=== PATIENT | female | born 1940 | race Caucasian/White ===

== ENCOUNTER 2024-05-29 09:51 | Day surgery (SDC) | payer MEDICARE, OTHER, SELFPAY ==
[2024-05-29] VITALS (10 sets, daily range): BP systolic 122–188; BP diastolic 47–75; BMI 24.4
[2024-05-29 10:41] LABS: ALT (SGPT) 18 U/L (0-35); AST (SGOT) 21 U/L (14-36); Albumin 4.7 g/dl (3.5-5.0); Alkaline Phosphatase 64 U/L (38-126); Blood Urea Nitrogen 19 mg/dl (7-17); Calcium 9.8 mg/dl (8.4-10.2); Carbon Dioxide 31 mmol/L (22-30); Chloride 99 mmol/L (98-107); Glucose 127 mg/dl (70-99); Potassium 4.8 mmol/L (3.5-5.1); Sodium 139 mmol/L (135-145); Total Bilirubin 1.6 mg/dl (0.2-1.3); Total Protein 7.6 g/dl (6.3-8.2); eGFR > 60.00
[2024-05-29 11:00] LABS: Glucose - Point of Care 114 mg/dl (70-99)
[2024-05-29 15:01] LABS: Glucose - Point of Care 81 mg/dl (70-99)
--- NOTE | 2024-05-29 15:25 | CONSULT.STRU ---
Consultation
-
Date/Time Consultation Requested: 05/29/2024
Date/Time Consultation Performed: 05/29/2024
Requesting Provider: Richard Paul MD
Performing Provider: MARILUZ Galeana
Reason for Consultation: /TAVR
Patient History
Physicians
Family Physician: Yaneth Shelley MD
Outpatient Dewaxer: Reema Bunn MD
Primary Dewaxer: Reema Bunn MD
History of Present Illness
Ms. Mane is a very pleasant, very spry 83 yof with a PMH significant for , CAD, CABG, PAF, PPM, HTN, IDDM, HLD. Her echocardiogram from 05/01/2024 is notable for EF 53%, AV PM 66/46, TOYA 0.63, DI 0.24, pk brii 4.05, no AI, moderate-severe MAC,
mild MR, PVSP 40.2. From a symptomatology standpoint, patient described ERIC that has progressively gotten worse over the last several months. She also has positional dizziness. Ms. Mane continue to be very active with her household including
bringing wood up to the house. Discussed the pathophysiology and treatment options of including SAVR and TAVR. Explained the evaluation process comprising of repeat labs, dental clearance, CT scan, CT surgical consult, and a heart team
discussion. TAVR booklet, contact information, prescriptions, and appointments given to patient. Allowed for and answered quesiotns at bedside.
Past Medical History
Past Medical History: Atrial Fib, CAD, HTN, Hypothyroidism, RI, Valvular Disease (aortic stenosis, MR) and Other (hyperlipidemia)
Past Surgical History
Past Surgical History: CABG (10/2013 @ [facility]) and PCI/Stent
Dental History
[facility]
Family History
Father: at Age (45) and Cause of (heart disease)
Social History
Alcohol: None
Drug: None
Tobacco: Non-Smoker
Living: With Family
Allergies
Allergy/AdvReac Type Severity Reaction Status Date / Time
acetaminophen [From Vicodin] Allergy pt doesnt Verified 05/29/24 10:58
recall
alirocumab Allergy Unknown Verified 05/29/24 10:58
[From Praluent Pen]
diazepam [From Valium] Allergy pt not Verified 05/29/24 10:55
aware
ezetimibe [From Zetia] Allergy Unknown Verified 05/29/24 10:58
hydrocodone [From Vicodin] Allergy pt doesnt Verified 05/29/24 10:58
recall
ibuprofen [From Advil] Allergy dizziness Verified 05/29/24 10:55
lisinopril [From Prinivil] Allergy Unknown Verified 05/29/24 10:58
oxycodone [From Percocet] Allergy pt doesnt Verified 05/29/24 10:58
know
sulfamethoxazole Allergy gi upset Verified 05/29/24 10:58
[From Bactrim]
trimethoprim [From Bactrim] Allergy gi upset Verified 05/29/24 10:58
Home Medications
�Medication �Instructions �Recorded �Confirmed �Type
apixaban 5 mg tablet (Eliquis) 5 mg PO BID afib 05/29/24 05/29/24 History
clorazepate dipotassium 3.75 mg 3.75 mg PO DAILY anxiety 05/29/24 05/29/24 History
tablet
colestipol 1 gram tablet 1 g PO BID cholesterol 05/29/24 05/29/24 History
dronedarone 400 mg tablet (Multaq) 400 mg PO BID afib 05/29/24 05/29/24 History
insulin aspart U-100 100 unit/mL 1 sliding scale dose SC 05/29/24 05/29/24 History
(3 mL) subcutaneous pen (Novolog DIRECTED dm
FlexPen U-100 Insulin aspart)
insulin glargine 100 unit/mL See Rx Instructions .Route 05/29/24 05/29/24 History
subcutaneous cartridge .COMPLEX dm
levothyroxine 112 mcg tablet 112 mcg PO DAILY Thyroid 05/29/24 05/29/24 History
(Synthroid)
losartan 50 mg tablet 75 mg PO DAILY bp 05/29/24 05/29/24 History
metformin 500 mg tablet 500 mg PO BID dm 05/29/24 05/29/24 History
multivitamin 1 cap PO DAILY Supplement 05/29/24 05/29/24 History
omeprazole 20 mg capsule,delayed 20 mg PO DAILY stomach 05/29/24 05/29/24 History
release
STS%
STS %: 6.79
Review of Systems
-
History Source: Patient
General: Reports Weight Loss (intentional)
Respiratory: Reports ERIC
Cardiac: Reports No Symptoms
Abdomen/GI: Reports No Symptoms
: Reports No Symptoms
Musculoskeletal: Reports No Symptoms
Skin: Reports No Symptoms
Neurological: Reports Dizzy
Vascular: Reports No Symptoms
Physical Exam
Vital Signs
Temp 97.3 F 05/29/24 10:05
Temp route: Oral 05/29/24 10:05
Pulse 70 05/29/24 12:30
Resp Rate 22 05/29/24 12:30
Blood pressure 179/59 05/29/24 10:53
Blood pressure extremity used: Right upper arm 05/29/24 10:05
MAP (cuff-Triny Monitor) 93 05/29/24 10:53
SaO2 97 05/29/24 12:30
Oxygen Mode of Delivery Room air 05/29/24 10:05
Can the patient verbally communicate their pain? Yes 05/29/24 10:05
Actual Weight 64.4 kg 05/29/24 10:54
Body Mass Index (BMI) 0.0 05/29/24 11:14
Labs
05/29/24 10:05
Diagnostic Studies
Echocardiogram 05/01/2024
SUMMARY
1. Preserved left ventricular systolic function.
2. Estimated left ventricular ejection fraction is normal with an ejection fraction of 53.2 % by Shook's method.
3. Left ventricular ejection fraction, by visual estimation, is 50 to 55%.
4. Mild concentric left ventricular hypertrophy.
5. Abnormal LV diastolic function.
6. Normal right ventricular size and systolic function.
7. Severely dilated left atrium by volume index 62.3 mL/m2.
8. Normal right atrium by area 15.0 cm2.
9. Aortic valve is thickened and calcified. Severe aortic valve stenosis. No evidence of aortic regurgitation.
10. AoV velocity of 4.05 m/s; Peak aortic valve gradient = 65.5 mmHg; Mean gradient = 46.0 mmHg; AoV Area by continuity equation = 0.63 cm2; AoV Dimensionless Index = 0.24.
11. There is mild thickening of the anterior and posterior leaflets of the mitral valve. Moderate to severe mitral annular calcification.
12. Mild mitral valve regurgitation is seen.
13. Moderate tricuspid regurgitation.
14. Right atrial pressure of (3 mmHg), the estimated right ventricular systolic pressure is mildly elevated at (40.2 mmHg).
15. Pacer wire noted in the right heart.
16. Compared to a prior TTE study from 08/04/2021.
17. Mid anteroseptal segment and apex are abnormal.
Procedure Type:�Isolated AVR
Perioperative Outcome Estimate %
Operative Mortality 6.79%
Morbidity & Mortality 25.3%
Stroke 2.64%
Renal Failure 5.51%
Reoperation 5.01%
Prolonged Ventilation 14.8%
Deep Sternal Wound Infection 0.226%
Long Hospital Stay (>14 days) 21.2%
Short Hospital Stay (<6 days)* 17%
Exam
General: Well Developed, Well Nourished, No Apparent Distress and Comfortable
HEENT: Normocephalic
Neck: Trachea Midline
Respiratory: Clear (Anteriorly)
Cardiac: Murmur (III/)
GI: Soft and Non Tender
Rectal: Deferred by Provider
Skin: Warm and Dry
Neuro: Awake, Alert, Oriented and AO x 3
Extremities: Pulses
Psych: Calm
Assessment / Plan
-
Aortic stenosis
Continue TAVR evaluation
Trend creatinine (Rx given)
TAVR CT Scan (06/16)
CT surgical consult (MPT 06/24)
Frailty testing and KccQ 12 at consult
Dental clearance
Will hold Eliquis for TAVR and initiate aspirin while Eliquis held
Heart team discussion.
Data Reviewed
-
Mate Relief: Discussed with Physician
Echo: Report Reviewed by me and Discussed with Physician
Labs: Labs Reviewed by me
Old Records: Reviewed (Drs. Bunn and Beverly office notes)
--- NOTE | 2024-05-29 15:41 | ITS.CL.PN ---
[employer] - Procedure Note
Procedure
Procedure Note:
CARDIAC CATHETERIZATION REPORT
Date of Procedure: 05/29/2024
Referring: Dr. Reema Bunn MD
Indication: severe aortic stenosis
PROCEDURE(S)
1. right heart catheterization
2. left heart catheterization
3. coronary angiography
ACCESS
1. 6F right femoral artery (closure: Angioseal)
2. 5F right antecubital vein (closure: manual hemostasis)
CATHETERS
1. 5F [place]-Ja[place]
2. 6F JR4
3. 6F JL4
4. 6F MPA (best catheter for SVG-OM1)
5. 6F RUDY
6. 6F 3DRC
MODERATE SEDATION: 64 minutes of moderate sedation was utilized. An independent medical screener was present to assist with and help manage the patient's level of consciousness and physiologic status.
ULTRASOUND GUIDED VASCULAR ACCESS (right brachial vein): Ultrasound was utilized for vascular access. The vessel was visualized under ultrasound and noted to be patent. An image of the vessel was stored permanently in the patient's medical record.
Under direct ultrasound guidance, vascular access was obtained using a modified Seldinger technique and a 5 Greek sheath was placed.
ULTRASOUND GUIDED VASCULAR ACCESS (right common femoral artery): Ultrasound was utilized for vascular access. The vessel was visualized under ultrasound and noted to be patent. An image of the vessel was stored permanently in the patient's medical
record. Under direct ultrasound guidance, vascular access was obtained using a modified Seldinger technique and a 6 Greek sheath was placed.
HEMODYNAMIC DATA
LV 232/14 (EDP 20) mmHg
AO 176/62 (mean 105) mmHg
RA 7 mmHg
RV 42/3 (EDP 8) mmHg
PA 40/14 (mean 27) mmHg
PCWP 17 mmHg
SaO2 94.5%
SvO2 70.3%
Hb 13.4 g/dL
CO/CI 4.62/2.83 L/min/m2
SVR 1697 dsc*-5
PVR 2.2 Wood units
CORONARY ANGIOGRAPHY
Dominance: right
LM: moderate caliber vessel with severe distal stenosis
LAD: gives rise to an early rising ramus/D1 and D2 before being totally occluded with the mid-distal vessel fed via the GUY which backfills a D3 and antegrade fills the vessel to the apex. There are serial severe stenoses in the distal vessel with
TIMI3 flow to the apex.
LCx: totally occluded ostially. The entire vessel is fed via the patent SVG-OM1. The OM1 proximal to the SVG touchdown has a patent stent with moderate diffuse ISR. The remainder of the vessel has mild diffuse disease.
RCA: gives rise to a RPDA and several RPL branches. There is diffuse mild-moderate disease throughout.
BYPASS GRAFT ANGIOGRAPHY:
GUY-LAD: the GUY is taken as a pedicle and forms an anastomosis with the mid-LAD
SVG-OM1: patent
SVG-RPDA: occluded proximally (as reported from 2020 catheterization)
RADIATION: dose 767 mGy; DAP 49 Gy*cm2; fluoroscopy time 25 min
CONCLUSIONS
1. coronary artery disease as described with patent GUY-LAD, patent SVG-OM1, and known occluded SVG-RPDA. There is diffuse non-critical disease in the bad river band RCA. The LAD distal to the GUY touchdown has serial severe lesions with TIMI3 flow to the
apex.
2. mildly elevated biventricular filling pressures, mild pulmonary hypertension, and normal cardiac output
3. peak to peak gradient on pullback of 56 mmHg consistent with know high gradient severe aortic stenosis
RECOMMENDATIONS
1. expectant management after cardiac catheterization via right common femoral artery and right brachial vein approach
2. medical management of CAD s/p CABG
2. proceed with TAVR workup
Copy to: Dr. Reema Bunn MD (diabetes nurse); Dr. Ena Shelley MD (PCP)
Signed: Richard Paul MD, PhD
== END 2024-05-29 18:31 | disposition home or self-care (01) ==
LOC: CATH 09:51
PROVIDERS: ATTENDING PHYSICIAN Student in an Organized Health Care Education/Training Program; FAMILY PHYSICIAN Internal Medicine; OTHER PHYSICIAN Internal Medicine Cardiovascular Disease
DX: I25.810 Atherosclerosis of coronary artery bypass graft(s) without angina pectoris (principal); I25.10 Atherosclerotic heart disease of native coronary artery without angina pectoris; I27.20 Pulmonary hypertension, unspecified; I08.3 Combined rheumatic disorders of mitral, aortic and tricuspid valves; I10 Essential (primary) hypertension; E11.9 Type 2 diabetes mellitus without complications; Z79.01 Long term (current) use of anticoagulants; Z79.4 Long term (current) use of insulin; Z79.890 Hormone replacement therapy; Z79.84 Long term (current) use of oral hypoglycemic drugs; I25.2 Old myocardial infarction
CPT/HCPCS: 99152; 99153; 76937; 80053; 82962; 93461; C1760; C1769; C1894; Q9967

== ENCOUNTER → 2024-06-16 09:33 | Outpatient (REF) | payer MEDICARE, OTHER, SELFPAY | LOC: RAD 09:33 | PROVIDERS: ATTENDING PHYSICIAN Nurse Practitioner Acute Care; FAMILY PHYSICIAN Internal Medicine | DX: I35.0 Nonrheumatic aortic (valve) stenosis (principal) | CPT/HCPCS: 74174; 75572; Q9967 ==

== ENCOUNTER 2024-07-17 05:24 | Inpatient (IN) | payer MEDICARE, OTHER, SELFPAY ==
[2024-07-09 13:33] LABS: % Basophils 0.8 % (0-2); % Eosinophils 2.8 % (0-6); % Immature Granulocytes 0.1 % (0-0.5); % Lymphocytes 33.9 % (20.5-51.1); % Monocytes 6.5 % (1.7-9.3); % Neutrophils 55.9 % (42.2-75.2); Absolute Basophils 0.1 10^3/uL (0-0.2); Absolute Eosinophils 0.2 10^3/uL (0-0.7); Absolute Lymphocytes 2.7 10^3/uL (1.2-3.4); Absolute Monocytes 0.5 10^3/uL (0.1-0.6); Absolute Neutrophils 4.4 10^3/uL (1.4-6.5); Hematocrit 39.2 % (37.0-47.0); Hemoglobin 13.4 g/dL (12.0-16.0); Mean Corp Hgb Conc. 34.2 g/dL (33.0-37.0); Mean Corpuscular Hgb 32.9 pg (27.0-31.0); Mean Corpuscular Volume 96.3 fL (81.0-99.0); Mean Platelet Volume 10.2 fL (7.4-10.4); Nucleated Red Blood Cells % 0 %; Platelet Count 220 10^3/uL (130-400); Red Blood Cell Count 4.07 10^6/uL (4.20-5.40); Red Cell Dist. Width 12.3 % (11.5-14.5); White Blood Cell Count 7.9 10^3/uL (4.8-10.8)
[2024-07-09 13:42] LABS: INR 1.23; PT 16.1 Sec (11.4-14.6)
[2024-07-09 13:43] LABS: APTT 32.5 Sec (23.4-35.0)
[2024-07-09 13:50] LABS: Urine Albumin Negative (Neg - Trace); Urine Bilirubin Negative (Negative); Urine Character Clear (Clear); Urine Color Yellow; Urine Glucose Negative (Negative); Urine Ketone Negative (Negative); Urine Leukocyte Negative (Negative); Urine Nitrite Negative (Negative); Urine Occult Blood Negative (Negative); Urine Urobilinogen Negative (Neg - 1+)
[2024-07-09 13:58] LABS: ALT (SGPT) 17 U/L (0-35); AST (SGOT) 22 U/L (14-36); Albumin 4.2 g/dl (3.5-5.0); Alkaline Phosphatase 65 U/L (38-126); Blood Urea Nitrogen 19 mg/dl (7-17); Calcium 9.9 mg/dl (8.4-10.2); Carbon Dioxide 33 mmol/L (22-30); Chloride 103 mmol/L (98-107); Direct Bilirubin 0.2 mg/dl (0.0-0.4); Glucose 119 mg/dl (70-99); Potassium 4.9 mmol/L (3.5-5.1); Sodium 144 mmol/L (135-145); Total Bilirubin 1.1 mg/dl (0.2-1.3); Total Protein 7.2 g/dl (6.3-8.2); eGFR > 60.00
[2024-07-09 14:07] LABS: NT-proBNP 1830 pg/ml
--- NOTE | 2024-07-09 14:08 | W.PN.UPDATE ---
Update Note
Progress Note Update
Assessed Ms. Mane in preadmission testing and confirmed medication list. She will hold Eliquis x 48 hours (last dose Friday 07/14), she will take 325mg Aspirin Saturday 07/15, 81 mg aspirin Sunday 07/16, and 07/17, she will also take her
levothyroxine morning. Patient will arrive to the [facility] at 0530. Reviewed the risks of the procedure as discussed in consult, patient verbalized understanding. Informed Ms. Mane, she will get a phone call from the heart team on
Saturday 07/15 to confirm time and location of arrival. Allowed for and answered question.
--- NOTE | 2024-07-09 14:41 | CM ---
Met with Mrs. Mane and her daughter in [facility]. She states prior to admission she resides with her daughter in a two story home with two steps to enter. She states she has a first floor set-up. She states she has two steps to get into her
kitchen and two steps to get into her bedroom. She states prior to admission she was independent with ambulation and adls. She states she has a wheelchair at home and no other DME. She states she has a prescription plan with [facility] and uses [facility]. Her daughter states she will be home the weekend and Sunday to assist in her care if needed. The discharge plan is to return home with her daughter and a home visit by the Transitional Care Nurse when medically stable.
We reviewed pre-op and post-op routines. We reviewed the shower instructions. She has the soap, written instructions and the TAVR Educational Booklet. We also reviewed restrictions including driving and lifting restriction. We discussed a home
visit by the Transitional Care Nurse. She is agreeable to a home visit. The plan is for TAVR on , 07/17/24.
[2024-07-09 14:42] LABS: Glycohemoglobin (HgbA1c) 6.5 % (4.0-5.6)
[2024-07-17] VITALS (16 sets, daily range): BP systolic 101–182; BP diastolic 41–80; BMI 26.0
[2024-07-17 05:55] LABS: Glucose - Point of Care 119 mg/dl (70-99)
--- NOTE | 2024-07-17 06:21 | W.CVOR.SURPR ---
CVOR Surgeon Immed Pre Op
-
I have examined this patient prior to performance of the scheduled procedure.
The patient's condition is unchanged from the time of the dictated/written History and
Physical and the patient is able to undergo the scheduled procedure.
TF TAVR
Full rescue at the discretion of the surgeon re: operative intervention
--- NOTE | 2024-07-17 08:55 | W.PN.CT.SURG ---
CT Surgery Operative Note
-
OPERATIVE REPORT
Preoperative Diagnosis: Severe aortic valve stenosis, symptomatic
Postoperative Diagnosis: Same
Procedure(s) Performed: Right trans femoral TAVR with a 29mm Medtronic Evolut FX + device with pre-BAV
Date of Procedure: 07/17/2024
Comorbidities:
1. Severe symptomatic aortic stenosis
2. HTN
3. Hyperlipidemia
4. Preoperative pacemaker implantation
5. Diabetes
6. Thyroid disease
7. 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
8. Prior cardiac surgery in the form of CABG
Cardiac Surgeon: Jesús Henry MD, MS
Pastry Mixer: Dev Paul MD
Anesthesia: Conscious Sedation, Local
EBL: 100cc
Products: none
Implant: Medtronic Evolut 29mm FX +, SN: [id number]
Indication(s) for Procedures: 83-year-old female with severe aortic stenosis. Symptomatic. MDT discussion with overall consensus by all parties to pursue TAVR. CT-TAVR protocol revealed acceptable anatomy for a self-expanding TAVR valve.
Start time: 0752hrs
Deployment time: 0832hrs
End time: 0855hrs
Radiation Dose (mGy): 548.16
DAP (cm2.Gy): 44.9329
Fluoroscopy time (minutes): 11.1
Contrast volume (ml): 134
TAVR gradient (mmHg): 5mmHg
Heparin Dose: 5000units
Protamine Dose: 50mg
Final Valve Positioninmm:3mm
Findings: Preoperative LVEF was 65% and was 65% following TAVR without inotropic support. Function was overall normal without regional wall motion abnormalities or dyskinesia. The aortic valve was well seated with only trace PVL. The patient has a
preoperative pacemaker and was back into a paced rhythm following deployment of the valve. There was successful placement of 29 mm Evolut FX PLUS TAVR valve with prevalve BAV using a 20 mm balloon without acute complications.
Access:
1. Device -right common femoral artery, perclose x 2
2. Pigtail -left common femoral artery + 6Fr angioseal
3. Transvenous Pacer -left common femoral vein
Description of Procedure: The patient was taken to the lab intern. Their identity and procedure to be performed were verified and they were positioned supine on the lab intern table. Induction via conscious sedation with local analgesia. The patient was
then prepped and draped from chin to thigh in a sterile fashion. A preoperative time-out was performed with all members of the team present. Using fluoroscopy, bilateral femoral heads and their margins were identified. Arterial and venous access
were done with a micropuncture needle with Seldinger technique. Test pacing revealed capture with excellent threshold. Angiography confirmed proper puncture site and femoral artery integrity. Two Per-Close devices were used on the TAVR side. An AL1
catheter was used to deliver a extrastiff wire and insertion of the working sheath. An AL1 catheter with a straight stiff wire was used to access the LV. The valve was prepped and mounted on to the device carrier. An ACT of >250 was achieved. We
verified x 3 under fluoroscopy that the valve was mounted correctly with paddles in appropriate position. At this point we exchanged for a J-wire for a pigtail into order to facilitate placement of a Lunderquist wire in the LV. The 20 mm pre-BAV
balloon was then inserted through the Cook sheath and up along the Lunderquist wire. The balloon was set across the valve and under rapid pacing 180 bpm we performed a balloon valvuloplasty with good effect. Pacing was stopped and the balloon was
deflated and removed. The Cook sheath was then removed leaving the [address] and the inline device sheath was mounted on and advanced. We than set our parameters to achieve a co-planar view with the pigtail positioned in the NCC.
We advanced the device with it's in-line sheath into the descending thoracic aorta and over the arch into the root and positioned across the aortic valve. Contrast fluoroscopy was used to visualize the prosthesis across the valve. We performed a
quick pre-deployment time out. We verified positioning based on the pigtail and gentle contrast puffs. The valve was slowly deployed to just before annular contact. We paused here and verified positioning in our cusp overlap view. We then rotated
[place] and removed any parallax from the valve. Contrast was used to verify the LCC was appropriate in height. There was difficulty hearing opacifying the left coronary cusp however we felt confident that the scar of the device was appropriately below
the annular line. We slowly continued to deploy the valve until the crowns and paddles were free from the device. At this point the valve was functioning and pacing was stopped. We slowly continued to deploy the valve until the crowns and paddles
were free from the device. The deployment device was withdrawn into the descending thoracic aorta while maintaining wire access across the valve. A transthoracic echocardiogram was performed . The pigtail was re-positioned at the level of the crown
of the valve and angiography revealed excellent placement and seating of the valve at the annulus with trace to mild paravalvular leak. A transthoracic echocardiogram demonstrated trace if anything paravalvular leak and low gradient. We opted not
to perform post balloon valvuloplasty for dilation. The device was removed from the groin as we cinched down the perclose devices while maintaining wire access. There was acceptable hemostasis. The pigtail was repositioned into the
descending/abdominal and runoff aortogram was performed. There was no significant stenosis or dissection of the bilateral iliofemoral systems with excellent runoff to the SFAs. All wires were removed and perclose snugged and cut. There was
acceptable hemostasis of bilateral groins.
All instrument, sponge, and needle counts were confirmed to be correct x 2 at the end of the operation. The patient was transferred to the cardiac intensive care unit in stable condition.
I, Dr. Jesús Henry, was present, scrubbed for, and performed all critical elements of this procedure.
Jesús Henry MD, MS
Cardiothoracic Surgeon
[facility]
This operative dictation was created using the Upd[employer] dictation system. Please excuse any grammatical, typographical, or 'sound alike' errors
--- NOTE | 2024-07-17 08:58 | ITS.CL.PN ---
[employer] - Procedure Note
Procedure
Procedure Note:
TRANSCATHETER AORTIC VALVE REPLACEMENT REPORT
Date of Procedure: 07/17/2024
Referring: Dr. Reema Bunn MD
Indication: symptomatic severe aortic stenosis
Operators: Richard Paul MD, PhD (interventional cardiology); Dr. Jesús Henry MD (CT surgery)
Anesthesia: conscious sedation provided by the anesthesia staff
PROCEDURE: transfemoral, transcatheter aortic valve replacement with a Medtronic Evolut Fx Plus 29 mm valve
ACCESS:
1. 6F left femoral vein (closure: manual hemostasis)
2. 6F left common femoral artery (closure: Angioseal)
3. 14F right common femoral artery (closure: Perclose x2)
HEMODYNAMIC DATA
LV 208/12 (EDP 23) mmHg
PROCEDURE NARRATIVE:
The patient was prepped and draped in standard sterile fashion. Conscious sedation was provided by the anesthesia staff. 6F left femoral vein and left common femoral artery access was obtained with ultrasound guidance using micropuncture technique
with verification of appropriate arteriotomy location via hand injection angiography. A temporary venous pacing wire was advanced via the left femoral vein to the right ventricle under fluoroscopic guidance with appropriate capture verified. A 5F
pigtail catheter was advanced via the left common femoral artery and seated in the non-coronary cusp. Angiography was performed to verify the cusp overlap angle.
8F right common femoral artery access was obtained with ultrasound guidance using micropuncture technique with verification of appropriate arteriotomy location via hand injection angiography. The arteriotomy was preclosed with two Perclose sutures
followed by replacement of the 8F sheath. Using an AL1 catheter, a Lunderquist wire was placed in the descending thoracic aorta. A 12F dilator was advanced over the Lunderquist wire followed by placement of a 14F Cook sheath. Heparin 5000 units was
given. The AL1 catheter was re-advanced through the sheath to the level of the ascending aorta. The Lunderquist wire was exchanged for a soft tipped straight wire which was used to cross the aortic valve and deposit the AL1 in the LV apex. A J-wire
was used to exchange the AL1 for a pigtail catheter in the LV and LVEDP was measured. The Lunderquist wire was advanced through the pigtail catheter and seated in the LV apex. ACT was checked and confirmed to be >300 seconds.
A 20 mm True valvuloplasty balloon was advanced over the Lunderquist wire and into the aortic annulus. Valvuloplasty was performed under rapid pacing with good balloon expansion. The valvuloplasty balloon was removed.
The valve was inspected under fluoroscopy to confirm lack of infolding above the 4th node. The Cook sheath was removed, and the in-line sheath was advanced over the Lunderquist wire into the descending aorta. The valve was then advanced over the
aortic arch and into the left ventricle. In the cusp overlap view, the valve was slowly deployed to the point of flowering. The patient was paced to adequately lower pulse pressure as the valve was deployed through the rumble strips to 80%.
Injection demonstrated a non-coronary cusp implant depth of 3 mm. Angiography provided poor visualization of the LCC so the pigtail was repositioned and repeat angiography performed in an UGANDAN projection demonstrated left coronary cusp implant depth
of 3 mm. The decision was made to proceed with full deployment. The Lunderquist wire was partially withdrawn to lift the nose cone of the valve delivery device. In the UGANDAN view, the delivery handle was slowly rotated until both paddles were released
from the superior aspect of the valve. The delivery device was withdrawn to the descending aorta and re-assembled. The patient was resuscitated by anesthesia with recovery of adequate blood pressure. Telemetry demonstrating sinus rhythm.
Aortography demonstrated good valve positioning, adequate coronary filling, and mild aortic valve insufficiency at the left cusp. Echocardiography was more consistent with trace aortic insufficiency at the left cusp. Mean valve gradient was 5 mmHg.
The valve deployment system and inline sheath were removed, and hemostasis obtained with the two Perclose sutures. Protamine 50 mg was given. Aortoiliac angiography demonstrated no evidence of iliofemoral dissection/perforation and good runoff below
the common femoral artery bilaterally. The pacemaker and the pigtail catheter were removed. The left femoral artery sheath was removed using a 6F Angioseal. The left femoral venous sheath was removed with manual pressure.
RADIATION: dose 548.16 mGy; DAP 44.9329 Gy*cm2; fluoroscopy time 11.1 min
CONCLUSIONS
1. successful placement of a Medtronic Evolut Fx Plus 29 mm transcatheter aortic valve via right transfemoral approach with no acute complications, trace LCC PVL and final mean gradient of 5 mmHg
2. acute on chronic systolic heart failure with elevated filling pressures (LVEDP = 23)
Copy to: Dr. Reema Bunn (crew attendant); Dr. Ena Shelley MD (PCP)
Signed: Richard Paul MD, PhD
--- NOTE | 2024-07-17 09:09 | W.PN.UPDATE ---
Update Note
Progress Note Update
Reviewed Ms. Mane with the heart team in the preTAVR SDM and confirmed a 29mm Evolut FX+. Patient will resume Eliquis post TAVR. LVEDP 23mmHg. #29mm EvolutFX+ (serial # [id number]) successfully deployed via right transfemoral access. Post implant MG
5mmHg.
[2024-07-17 09:49] LABS: Glucose - Point of Care 123 mg/dl (70-99)
--- NOTE | 2024-07-17 10:20 | CM ---
CM following for DC planning needs.
Patient in OR today for TAVR.
Reviewed initial assessment. Pt. resides w/ dtr. in a private, 2 st home w/ 1st floor set up. Home has 2 DAT. Functionally, patient is indep. w/ ADLs, mobility with use of a W/C PRN.
Antic. DC plan is for home w/ CT Transitional Care RN.
CM to follow.
[2024-07-17] MEDS: REFRESH CELLUVISC GEL 1 DROPS OPHTH ×2 (12:13→16:24)
[2024-07-17] MEDS: ANCEF 10 IV ×2 (12:13)
[2024-07-17 12:57] LABS: Glucose - Point of Care 138 mg/dl (70-99)
[2024-07-17] MEDS: LANTUS SC (13:46)
[2024-07-17] MEDS: NOVOLOG FLEXPEN-MODERATE RESISTANCE SC (13:46)
[2024-07-17] MEDS: ANCEF 5 IV (14:48)
[2024-07-17 15:10] LABS: ACT-LR - POC > 397 Seconds (116-155)
--- NOTE | 2024-07-17 17:02 | PTCARENOTE ---
Received pt post TAVR. VSS. Neurological checks as ordered. NIH 0. B/L groin sites w/ dressings clean, dry and intact. Pt denies any chest pain or SOB. Pt does c/o 'itchy/ irritation' of her right eye. Pt's daughter gave pt pt's eye drops.
CHIEF NURSE aware and evaluated pt. Orders noted. Pt states that her right eye is 'blurry and no longer itchy'. Will monitor.
[2024-07-17 17:49] LABS: Glucose - Point of Care 154 mg/dl (70-99)
[2024-07-17] MEDS: NOVOLOG FLEXPEN-MODERATE RESISTANCE 1 UNITS SC (18:17)
[2024-07-17] MEDS: MULTAQ 400 MG PO (19:20)
[2024-07-17 22:36] LABS: Glucose - Point of Care 184 mg/dl (70-99)
[2024-07-17] MEDS: LANTUS 0.1 UNITS SC (22:37)
--- NOTE | 2024-07-17 23:39 | PTCARENOTE ---
Pt rec'd at change of shift with daughter at her bedside. Neuro checks and NIH scale 0. Pt states she feels well. OOB with nursing with no c/o dizziness that she felt pre TAVR. DEHAIRER on telemetry, no murmur.
--- NOTE | 2024-07-18 02:38 | W.PN.CT ---
Today's Communication / Plan
-
- no acute events overnight
- Echo, EKG today
- Resume preop meds
- Start Eliquis
- OOB, ambulate
- discharge planning
Assessment / Plan
-
s/p Right trans femoral TAVR with a 29mm Medtronic Evolut FX + device with pre-BAV POD#1
- Severe symptomatic aortic stenosis
- HTN
- Hyperlipidemia
- Preoperative pacemaker implantation
- Diabetes
- Thyroid disease
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
- CAD with h/o CABG
Subjective
Procedure
s/p Right trans femoral TAVR with a 29mm Medtronic Evolut FX + device with pre-BAV on 07/17/[address] Henry.
-
Date of Service: July 18, 2024
Objective Data
-
Lab Results
07/18/24 04:27
07/18/24 04:27
PT 16.1 Sec (11.4-14.6) H 07/09/24 12:45
INR 1.23 07/09/24 12:45
APTT 32.5 Sec (23.4-35.0) 07/09/24 12:45
Vital Signs
Vital Signs
Temp Pulse Resp BP Pulse Ox
98.0 F 70 20 137/60 95
07/17/24 23:10 07/17/24 23:30 07/17/24 23:10 07/17/24 22:33 07/17/24 23:10
CT Intake/Output/Weight
07/17/24 07/17/24 07/18/24
06:59 18:59 06:59
Intake Total 1060 / 1060
Balance 1060 / 1060
SaO2: 95
Physical Exam
-
General: AOx3
Cardiovascular: Regular rate & rhythm
Respiratory: Clear
Incision: Dressing Intact
Extremities: No Edema
[2024-07-18 04:16] VITALS: BP 120/56
[2024-07-18 04:46] VITALS: BMI 26.2
[2024-07-18 04:46] LABS: Hematocrit 34.2 % (37.0-47.0); Hemoglobin 11.8 g/dL (12.0-16.0); Mean Corp Hgb Conc. 34.5 g/dL (33.0-37.0); Mean Corpuscular Hgb 33.1 pg (27.0-31.0); Mean Corpuscular Volume 96.1 fL (81.0-99.0); Mean Platelet Volume 10.2 fL (7.4-10.4); Platelet Count 164 10^3/uL (130-400); Red Blood Cell Count 3.56 10^6/uL (4.20-5.40); Red Cell Dist. Width 12.5 % (11.5-14.5); White Blood Cell Count 10.6 10^3/uL (4.8-10.8)
[2024-07-18 05:09] LABS: Blood Urea Nitrogen 17 mg/dl (7-17); Calcium 9.3 mg/dl (8.4-10.2); Carbon Dioxide 30 mmol/L (22-30); Chloride 105 mmol/L (98-107); Estimated Creatinine Clearance 40 ml/min; Glucose 116 mg/dl (70-99); Potassium 4.8 mmol/L (3.5-5.1); Sodium 140 mmol/L (135-145); eGFR > 60.00
[2024-07-18] MEDS: SYNTHROID 112 MCG PO (06:32)
--- NOTE | 2024-07-18 07:48 | W.PN.ANS.POP ---
Anesthesia Post Operative
- Anesthesia Post Op Note
Vital Signs Stable-See Nursing Note: Yes
Airway Patent: Yes
Adequate Pain Control: Yes
Change in Mental Status: No
Current Postoperative Nausea & Vomiting: No
Anesthesia Complications: No
General Anesthetic Recall: No
Unplanned Admission: No
Post Op Hydration Adequate: Yes
[2024-07-18 08:01] LABS: Glucose - Point of Care 104 mg/dl (70-99)
--- NOTE | 2024-07-18 08:02 | W.DCSUMMARY ---
Discharge Summary
Discharge Data
Date of Admission: 07/17/24
Date of Discharge: 07/18/24
-
Pending Results: No
Hospital Course
Primary care physician: Yaneth Brandt
Outpatient machine filler servicer: Reema Bunn
Inpatient consultants: [facility] Card[facility]
Procedures:
1. Right trans femoral TAVR #29mm Medtronic Evolut FX + device with pre-BAV
Primary Diagnosis:
1. severe aortic stenosis
Secondary Diagnoses:
1. HTN
2. Hyperlipidemia
3. Preoperative pacemaker implantation
4. Diabetes (A1C 6.5)
5. Hypothyroidism
6. 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
7. Prior CABG
8. Sick sinus syndrome s/p PPM
HPI: 83-year-old female was electively admitted on for TAVR.
Hospital course: Patient underwent a right transfemoral TAVR with preballoon valvuloplasty by Dr. Jesús Henry and Dev Banda. No procedural complications. Patient complained of right eye pain which was relieved with artificial tears eyedrops.
Postoperative day #1 EKG with AV paced rhythm. Chest x-ray without significant pleural effusion. Bilateral groin sites intact without bleeding or hematoma. Metformin will be resumed on 07/20/24. Predischarge TTE reported an EF of 60-65% with AV
gradients 12/6 mmHg, no AI, mild MR and TR. patient seen by cardiology and deemed stable for discharge to home
Home medication changes:
Resume metformin on 07/20/2024
Discharge Plan
-
Patient Disposition: Home (Routine Discharge)
Discharge Diagnosis/Procedures: TF TAVR
Condition: Good
Diet: Low Fat, Low Cholesterol and 2 Gram Sodium
Activity: As tolerated
Driving Restrictions: No driving for 1 week
Bathing Restrictions: OK to Shower
Others Tests: Please call Dr. Bunn to schedule your 30-day echocardiogram.
Other Services: Cardiac Rehab
Wound Care: No Lotions, powders, or creams to puncture sites
Specialty Instructions: Weigh Daily- Call MD for wt gain/loss 3 lbs overnight/5 lbs in 1 week
Referrals:
CT Transitional Care Nurse [Outside] (The Cardiothoracic Transitional Care Nurse will call you to set up a visit in 1-2 days.)
Ena Shelley MD [Family Provider] -
Reema Bunn MD [Non-Admitting Privileges] - 08/26/24 10:00 am
(*Please arrive at 9:40 AM*
*Please note, your appointment with Dr. Bunn for August 04 was cancelled and changed to this one*)
Prescriptions:
Continued
losartan 50 mg Tablet
75 mg PO DAILY
Rx Instructions:
1.5TAB
clorazepate dipotassium 3.75 mg Tablet
3.75 mg PO BID
omeprazole 20 mg Capsule,Delayed Release(Dr/Ec)
20 mg PO Q OTHER DAY
Rx Instructions:
PM
colestipol 1 gram Tablet
1 g PO DAILY
levothyroxine [Synthroid] 112 mcg Tablet
112 mcg PO DAILY
insulin aspart U-100 [Novolog FlexPen U-100 Insulin] 100 unit/mL (3 mL) Insulin Pen
1 sliding scale dose SC DIRECTED
Rx Instructions:
per pt rarely requires Novolog administration (approx. once per week)
Multaq 400 mg Tablet
400 mg PO BID
Eliquis 5 mg Tablet
5 mg PO BID
multivitamin Tablet
1 tab PO DAILY
insulin glargine [Lantus Solostar U-100 Insulin] 100 unit/mL (3 mL) Insulin Pen
See Rx Instructions .ROUTE .COMPLEX Qty: 0 0RF
Rx Instructions:
PER PT LANTUS BID PER SLIDING SCALE;
~10 UNITS IN AM
VARYING DOSE IN PM
Held
metformin 500 mg Tablet
500 mg PO BID
Hold Instructions: Resume on 07/20/24.
Discharge Orders:
Discharge Patient (As Directed); Ordered 07/18/24
Ordered By: Mia Adrian
Care Plan Goals
Care Plan Goals:
Problem: Readiness for enhanced knowledge related to diagnosis and treatment plan
Goal: Understand your diagnosis and treatment plan needs, including medications if applicable.
Instructions: Know your diagnosis, underlying causes and treatment plan options, including medications if applicable. Consult with your health care team to learn about your diagnosis and treatment plan, including medications if applicable.
Discharge Date and Time
Print Language: POLISH
[2024-07-18 08:04] VITALS: BP 140/47
[2024-07-18] MEDS: MULTAQ 400 MG PO (08:04)
[2024-07-18] MEDS: ELIQUIS 5 MG PO (08:04)
[2024-07-18] MEDS: COZAAR 75 MG PO (08:05)
[2024-07-18] MEDS: NOVOLOG FLEXPEN-MODERATE RESISTANCE SC (08:12)
[2024-07-18 08:13] VITALS: BP 140/47
[2024-07-18] MEDS: LANTUS 0.1 UNITS SC (08:52)
--- NOTE | 2024-07-18 10:04 | W.PN.CD ---
Today's Communication / Plan
-
echo
discharge planning
Impression / Plan
-
83 yo female with PMH of severe , CAD/CABG, paroxysmal A fib, PPM is admitted following TAVR.
s/p TAVR
-doing well
-rhythm is AV paced
-plan will be eliquis 5mg bid (also for A fib)
-echo
Paroxsymal A fib
-stable, AV paced
-cont eliquis 5mg bid, and dronedarone 400mg bid
Physical Exam
Vital Signs/Labs
Vital Signs
Temp Pulse Resp BP Pulse Ox
98.1 F 75 18 140/47 98
07/18/24 08:13 07/18/24 08:13 07/18/24 08:13 07/18/24 08:13 07/18/24 08:13
07/17/24 07/18/24 07/19/24
06:59 06:59 06:59
Actual Weight 62.5 kg 62.9 kg
07/18/24 04:27
07/18/24 04:27
PT 16.1 Sec (11.4-14.6) H 07/09/24 12:45
INR 1.23 07/09/24 12:45
APTT 32.5 Sec (23.4-35.0) 07/09/24 12:45
07/09/24
12:58
Lws-A-Rtxdaovynrz Pept 1830
Physical Exam
Constitutional: No acute distress and Comfortable
EENT: Moist mucous membranes
Cardiovascular: Rhythm & rate is regular, Pedal edema is absent, JVD pressure is normal and Systolic murmur absent
Respiratory: Respiratory effort normal and Lungs clear to auscul.
Neuro/Psych: AO x 3
Data Reviewed
-
Date of Service: July 18, 2024
EKG: Other (Tele: AV paced 70, no arrhythmia)
Labs: Labs Reviewed by me
[2024-07-18 11:28] VITALS: BP 129/52
[2024-07-18 12:00] LABS: Glucose - Point of Care 223 mg/dl (70-99)
--- NOTE | 2024-07-18 12:12 | CM ---
CM following for DC planning needs.
CM met w/ patient + dtr. at bedside. Pt. feels well POD#1.
Reviewed post op MD appointments; CT Transitional Care RN.
Plan is for home w/ CT Transitional Care RN.
[2024-07-18] MEDS: NOVOLOG FLEXPEN-MODERATE RESISTANCE 300 UNITS SC (12:14)
[2024-07-18] MEDS: DESENEX/MITRAZOL/ZEASORB 1 APPLIC TOPICAL (12:14)
== END 2024-07-18 14:53 | disposition home or self-care (01) | DRG 266 ==
LOC: IVU 05:24
PROVIDERS: Physician Assistant Medical; ADMITTING PHYSICIAN Thoracic Surgery (Cardiothoracic Vascular Surgery); CONSULT PHYSICIAN Student in an Organized Health Care Education/Training Program; FAMILY PHYSICIAN Internal Medicine
PROC: 02RF38N Replacement of Aortic Valve with Zooplastic Tissue, using Rapid Deployment Technique, Percutaneous Approach (ICD-10-PCS; 2024-07-17)
DX: I08.0 Rheumatic disorders of both mitral and aortic valves (principal); I50.23 Acute on chronic systolic (congestive) heart failure; E78.5 Hyperlipidemia, unspecified; E03.9 Hypothyroidism, unspecified; I48.0 Paroxysmal atrial fibrillation; I25.10 Atherosclerotic heart disease of native coronary artery without angina pectoris; E11.9 Type 2 diabetes mellitus without complications; I11.0 Hypertensive heart disease with heart failure; Z95.0 Presence of cardiac pacemaker; Z79.01 Long term (current) use of anticoagulants; Z79.890 Hormone replacement therapy; Z79.4 Long term (current) use of insulin; Z90.49 Acquired absence of other specified parts of digestive tract; Z82.49 Family history of ischemic heart disease and other diseases of the circulatory system; Z88.6 Allergy status to analgesic agent; Z88.1 Allergy status to other antibiotic agents; Z88.5 Allergy status to narcotic agent; Z88.8 Allergy status to other drugs, medicaments and biological substances; Z95.1 Presence of aortocoronary bypass graft
CPT/HCPCS: 93308; 33361; 36415; 71045; 71046; 80048; 80053; 81003; 82248; 82962; 83036; 83880; 85025; 85027; 85347; 85610; 85730; 86850; 86900; 86901; 87070; 93005; 93321; 93325; C1760; C1769; C1894; Q9967

== ENCOUNTER 2024-07-29 09:39 | Emergency (ER) | payer MEDICARE, OTHER, SELFPAY ==
[2024-07-29 09:41] VITALS: BP 158/65
[2024-07-29 10:05] VITALS: BMI 27.5
[2024-07-29 10:13] VITALS: BP 156/52
--- NOTE | 2024-07-29 10:25 | ED.GENMED ---
History of Present Illness
General
Chief Complaint: Dizziness
Source: patient and records
Exam Limitations: none
Time Seen by Provider: 07/29/24 10:10
History of Present Illness
History of Present Illness:
83yoF with a history of aortic stenosis s/p TAVR on 07/17/24, coronary artery disease s/p CABG, sick sinus syndrome s/p pacemaker, hypertension, hyperlipidemia, insulin-dependent diabetes, and hypothyroidism presenting with her daughter for
evaluation of dizziness. Patient had an episode of dizziness last night while standing. She states it felt like the room was spinning and like she was about to pass out. This lasted about 15 minutes before subsiding. She had an episode of
shaking this morning which lasted about 30-45 minutes at which point daughter brought her to the ED. She is currently feeling much better. She reports intermittent chest tightness since the TAVR procedure which has not worsened. She denies any
shortness of breath, palpitations, syncope, fevers, vomiting.
Phy Exam
General Physical Exam
General Presentation: well appearing and no apparent distress
General age: appears stated age
General Skin: warm and dry
General Habitus: normal and elderly
General Mental: alert
ENT Exam
ENT Exam: normocephalic
Cardiovascular Exam
Cardiovascular Exam: regular rate/rhythm and no murmur
Pulmonary Exam
Pulmonary Exam: lungs clear, no respiratory distress, no rales, no crackles and no rhonchi
Neurological Exam
Neurological Exam: alert
[place] Coma Scale
Eye Opening: Spontaneous
Verbal Response: Oriented
Motor Response: Obeys Commands
GCS Total Score: 15
Skin Exam
Skin Exam: normal color and warm/dry
Psychiatric Exam
Psychiatric Exam: normal mood/affect
Course
Orders/Labs/Results
Orders:
Orders
07/29/24 09:40
ECG [Electrocardiogram (*1)] Urgent
Reason for Study: Vertigo / Dizzy
EKG- Treatment ONCE
07/29/24 10:16
Interrogate Pacemaker- Treatment ONCE
CMP [Comprehensive Metabolic Panel] Urgent
Complete Blood Count/With Diff Urgent
Troponin I Urgent
Abnormal Lab Results
07/29/24
10:16
RBC 3.74 L 10^6/uL
(4.20-5.40)
Hct 35.9 L %
(37.0-47.0)
MCH 32.6 H pg
(27.0-31.0)
Absolute Monos (auto) 0.7 H 10^3/uL
(0.1-0.6)
Glucose 113 H mg/dl
(70-99)
07/29/24 10:16
07/29/24 10:16
Vital Signs
Initial and Last Documented VS:
Initial Vital Signs
Temp Pulse Resp BP Pulse Ox
97.9 F 79 17 158/65 99
07/29/24 09:41 07/29/24 09:41 07/29/24 09:41 07/29/24 09:41 07/29/24 09:41
Last Documented Vital Signs
Temp Pulse Resp BP Pulse Ox
97.9 F 70 17 147/52 99
07/29/24 09:41 07/29/24 11:00 07/29/24 11:00 07/29/24 11:00 07/29/24 11:00
MDM/Problems Addressed
Differential Diagnosis Includes:
83yoF here with dizziness. Episode last night that is described as room spinning. Had an episode of shakiness today. Currently asymptomatic. Recent TAVR on 07/17. No CP/SOB. No syncope. She is mildly hypertensive with otherwise stable vital signs.
She is well-appearing in no acute distress and exam is reassuring. Differential diagnosis includes but is not limited to: Nonspecific dizziness, vertigo, dehydration, arrhythmia
Initial ED plan: Check cardiac labs, EKG, and interrogate pacemaker.
*EKG
Interpreted by ED Provider?: Yes
EKG Intrepretation Date: 07/29/24
Heart Rate: 71
Rate: normal
Rhythm: av sequential
[place]: left axis deviation
Ischemia: no ischemia
*Critical Care Note
Total Time (30-74mins, 75-104mins- exclusive of procedures): Not Applicable
Update Note
Update Note:
EKG shows paced rhythm and troponin within normal limits. Remainder of labs unremarkable. No recent events on pacemaker interrogation. Patient remains asymptomatic on reassessment. Case discussed with cardiology who does not recommend any
further workup. Patient able to ambulate independently without any symptoms. No indication for hospitalization. Advised close f/u with PCP and ED return precautions discussed. Patient and daughter in agreement with plan and she was discharged in
stable condition.
ED Attending Note
-
Portions of this chart may have been created with voice recognition software.� Occasional wrong word or��sound alike� substitutions may have occurred due to the inherent limitations of voice recognition software.
Discharge Plan
Departure
Patient Disposition: Home (Routine Discharge)
Date of Disposition: 07/29/24
Time of Disposition: 11:25
Patient with high blood pressure during this ER visit?: Yes
Discharge Problem:
Nonspecific dizziness
Instructions: Dizziness
Prescriptions:
No Action
losartan 50 mg Tablet
75 mg PO DAILY
clorazepate dipotassium 3.75 mg Tablet
3.75 mg PO DAILY
omeprazole 20 mg Capsule,Delayed Release(Dr/Ec)
20 mg PO Q48H@1700
colestipol 1 gram Tablet
1 g PO DAILY
levothyroxine [Synthroid] 112 mcg Tablet
112 mcg PO DAILY
insulin aspart U-100 [Novolog FlexPen U-100 Insulin] 100 unit/mL (3 mL) Insulin Pen
1 sliding scale dose SC AC PRN (Reason: high blood sugar)
Multaq 400 mg Tablet
400 mg PO BID
Eliquis 5 mg Tablet
5 mg PO BID
multivitamin Tablet
1 tab PO DAILY
clorazepate dipotassium 3.75 mg Tablet
3.75 mg PO QPMPRN PRN (Reason: anxiety)
metformin 500 mg Tablet Extended Release 24 Hr
500 mg PO BID
insulin glargine [Lantus Solostar U-100 Insulin] 100 unit/mL (3 mL) insulin pen
12 unit SC BID
Referrals:
Ena Shelley MD [Family Provider] -
Activity Restrictions/Additional Instructions:
Please follow-up with your family doctor this week. Return to the ER with any new or worsening symptoms.
Interventions
Interventions:
*Risk Screen - Suicide Last Done: 07/29/24 09:42
*General Assessment Last Done: 07/29/24 09:42
*Neglect/Abuse Screening Last Done: 07/29/24 09:42
*ED- Fall Risk Assessment Last Done: 07/29/24 10:05
*ED COVID-19 Vaccine History Last Done: 07/29/24 09:42
*Nursing Disposition Last Done: 07/29/24 11:38
ED- Neurological Assessment Last Done: 07/29/24 10:05
ED- Cardiac Assessment Last Done: 07/29/24 11:38
ED Swallowing Screen Last Done: 07/29/24 11:37
Discharge Date and Time
Discharge Date/Time: 07/29/24 11:38
Print Language: GREEK
[2024-07-29 10:34] LABS: % Basophils 0.7 % (0-2); % Eosinophils 1.8 % (0-6); % Immature Granulocytes 0.3 % (0-0.5); % Lymphocytes 20.6 % (20.5-51.1); % Monocytes 7.1 % (1.7-9.3); % Neutrophils 69.5 % (42.2-75.2); Absolute Basophils 0.1 10^3/uL (0-0.2); Absolute Eosinophils 0.2 10^3/uL (0-0.7); Absolute Lymphocytes 1.9 10^3/uL (1.2-3.4); Absolute Monocytes 0.7 10^3/uL (0.1-0.6); Absolute Neutrophils 6.3 10^3/uL (1.4-6.5); Hematocrit 35.9 % (37.0-47.0); Hemoglobin 12.2 g/dL (12.0-16.0); Mean Corpuscular Hgb 32.6 pg (27.0-31.0); Mean Platelet Volume 9.4 fL (7.4-10.4); Nucleated Red Blood Cells % 0 %; Platelet Count 231 10^3/uL (130-400); Red Blood Cell Count 3.74 10^6/uL (4.20-5.40); Red Cell Dist. Width 12.4 % (11.5-14.5); White Blood Cell Count 9.1 10^3/uL (4.8-10.8)
[2024-07-29 10:37] LABS: ALT (SGPT) 15 U/L (0-35); AST (SGOT) 19 U/L (14-36); Albumin 3.8 g/dl (3.5-5.0); Alkaline Phosphatase 64 U/L (38-126); Blood Urea Nitrogen 16 mg/dl (7-17); Calcium 9.6 mg/dl (8.4-10.2); Carbon Dioxide 28 mmol/L (22-30); Chloride 106 mmol/L (98-107); Estimated Creatinine Clearance 46 ml/min; Glucose 113 mg/dl (70-99); Potassium 4.3 mmol/L (3.5-5.1); Sodium 142 mmol/L (135-145); Total Protein 6.7 g/dl (6.3-8.2); eGFR > 60.00
[2024-07-29 10:48] LABS: Troponin I < 0.012 ng/ml
[2024-07-29 11:00] VITALS: BP 147/52
== END 2024-07-29 11:38 | disposition home or self-care (01) ==
LOC: EMR 09:39
PROVIDERS: Physician Assistant; EMERGENCY PHYSICIAN Emergency Medicine; FAMILY PHYSICIAN Internal Medicine
DX: R42 Dizziness and giddiness (principal); I25.10 Atherosclerotic heart disease of native coronary artery without angina pectoris; Z95.1 Presence of aortocoronary bypass graft; Z95.2 Presence of prosthetic heart valve; Z95.0 Presence of cardiac pacemaker; E03.9 Hypothyroidism, unspecified; E11.9 Type 2 diabetes mellitus without complications; E78.5 Hyperlipidemia, unspecified; I10 Essential (primary) hypertension; I35.0 Nonrheumatic aortic (valve) stenosis; Z79.4 Long term (current) use of insulin
CPT/HCPCS: 99284; 80053; 84484; 85025; 93005